=== PATIENT | male | born 1955 | race Caucasian/White ===

== ENCOUNTER 2024-07-20 12:53 | Inpatient (IN) ==
--- NOTE | 2024-07-20 13:19 | XRay Report ---
XR chest 1V not portable CLINICAL HISTORY: Chest pain, nonspecific COMPARISON STUDY: None FINDINGS: Heart size and pulmonary vasculature are normal. No effusion, consolidation, or pneumothora x. IMPRESSION: No acute findings. ACT 112: Negative or not required by law. Electronically signed by: Dannie Cason M.D. 07/20/2024 1:18 PM
[2024-07-20] MEDS: METOPROLOL TARTRATE 1 MG/ML VIAL IV PRN (13:27)
[2024-07-20] MEDS: SODIUM CHLORIDE 0.9% 1,000 ML IV SCH (13:27)
[2024-07-20] MEDS ORDERED: HEPARIN SOD (PORCINE) 1000 UNIT/ML IV ONE (13:38)
[2024-07-20 13:46] LABS: Basophils # (auto) 0.06 K/uL (0.00-0.20); Eosinophils # (auto) 0.17 K/uL (0.00-0.50); Eosinophils % (auto) 2.7 %; Hematocrit (blood only) 56.8 % (42.0-52.0); Immature Granulocytes # (auto) 0.04 K/uL (0.01-0.20); Immature Granulocytes % (auto) 0.6 %; Lymphocytes # (auto) 1.53 K/uL (1.20-3.40); Lymphocytes % (auto) 24.4 %; Mean Corpuscular Hemoglobin 28.8 pg (25.0-34.0); Mean Corpuscular Hgb Conc 31.7 g/dL (32.0-36.0); Mean Platelet Volume 9.6 fL (9.4-12.4); Monocytes # (auto) 0.84 K/uL (0.11-0.59); Monocytes % (auto) 13.4 %; Neutrophils # (auto) 3.63 K/uL (1.40-6.50); Neutrophils % (auto) 57.9 %; Platelet Count 218 K/uL (130-400); RDW Coefficient of Variation 13.1 % (11.5-14.5); RDW Standard Deviation 44.2 fL (36.4-46.3); Red Blood Count 6.24 M/uL (4.70-6.10); White Blood Count 6.27 K/ul (4.8-10.8)
[2024-07-20 13:47] LABS: Albumin Globulin Ratio 1.6 (0.9-2); Albumin Level 4.7 gm/dl (3.4-5.0); BUN Creatinine Ratio 14.3 (10-20); Bilirubin,Total 0.7 mg/dl (0.2-1.0); Calcium 10.1 mg/dl (8.6-10.3); Creatinine Clr Calc Pharmacy 80.4 ml/min; Globulin 2.9 gm/dl (2.5-4.0); Potassium 4.6 mmol/L (3.5-5.1); Total Protein 7.6 gm/dl (6.0-8.3)
[2024-07-20 13:54] LABS: Troponin I High Sensitivity 7.1 pg/ml (0-20)
--- NOTE | 2024-07-20 14:05 | History & Physical Report ---
Date of Service July 20, 2024 Assessment & Plan (1) Atrial flutter: (2) Diabetes mellitus: (3) Hypothyroidism: (4) Osteoarthritis: Plan A flutter with RVR -Admit to PCU -Cardiology consult -Given metoprolol Lopressor IV 5 mg x 3, improved heart rate from 140s to 110, we will continue on metoprolol tartrate 25 mg Q6 scheduled for now. Unknown time of onset. Was found at the [place] upon routine outpatient routine followup. -As needed Lopressor for heart rate greater than 110 -Check TSH, add-on -heparin gtt started, CHADsVASC score of 2, will need to discuss anticoagulation with pt tomorrow and find if DOAC is affordable. DM type II -ISS with Accu-Cheks ACHS -A1c with a.m. labs - Will hold outpatient meds, med rec to be completed yet Osteoarthritis bilateral knees - left is worse than right -Has completed steroid injections, PT and is planning on knee replacement surgery within the next 6 months to 1 year through the [place] -Using meloxicam/Aleve at home, hold NSAID with use of heparin drip as above Hypothyroidism - Check TSH - Continue levothyroxine once meds updated DVT ppx: teds, scds, heparin drip Lines: 2 PIV FEN/GI: Heart healthy/DM diet CODE: Full code Dispo: From home, likely to remain in the hospital x 1-2 days A total of 75 minutes were spent with greater than 50% of that time face to face with the patient, personally reviewing all current laboratories, imaging studies, past medication reconciliation, outpatient chart review, and discussion with specialists to collaborate care for the patient with attending. Please see attending documentation for corrections and/or additions. History of Present Illness Chief Complaint: Tachycardia Primary Care Provider: [facility] This is a 68-year-old male with PMHx of DM type II, HTN, HLD, hypothyroidism, osteoarthritis of both knees. who presents to the hospital from the [place] where he presented for routine appointment as he goes every 6 months. There he was found to have HR in the 130s and was sent over here. He was having HR of 145-150 when he initially presented to [facility] ER. Pt denies any hx of cardiac arrhythmias previously. Pt does take medications for thyroid. He reports that he doesn't want to stay in hospital. Pt denies any symptoms of dizziness, lightheadedness, chest pain, shortness of breath. Pt took all morning meds including a muscle relaxer for knees, meloxicam and aleve for his knees. His Saadia, was talked to on the phone and reports that he has had exertional shortness of breath for some time. They are primarily sedentary any more and states patient reports it on his arthritis of the knees. Denies any alcohol, tobacco, excessive caffeine intake, illicit drug use. 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 He drinks alcohol maybe twice per month. Remote hx of smoking, quit in 1997 and smoked 1 ppd x 10-12 years. Was in the [employer] x 7 years and is retired. Surgical Hx: cholecystectomy over 10 years ago, knee surgery for patellar ligament release 2 years ago Family Hx: Denies any significant family hx, has three other siblings who are alive and well. Past Med/Surg History Problem List (Updated 07/20/24 @ 15:26 by Jose De Jesus Bey MD) Atrial flutter with rapid ventricular response (Acute) S/P cholecystectomy Atrial flutter Diabetes mellitus Hypothyroidism Osteoarthritis Social History (Updated 07/20/24 @ 14:40 by Janel Torres PA-C) Smoking Status: Former smoker Do You Dip or Chew Tobacco: No; Hx Substance Use: No Feels Safe at Home: Yes Review of Systems Review of Systems: Constitutional: No fever, sweats or chills Eyes: No diplopia, no worsening or blurred vision ENT: normal hearing, no trouble swallowing Respiratory: No cough, sputum, dyspnea at rest or on exertion Cardiovascular: No chest pain, tightness or palpitations Abdomen: No pain, nausea, vomiting, diarrhea or constipation Musculoskeletal: No joint pain, calf pain, swelling Neurologic: No weakness, numbness/tingling, or balance problems Psychiatric: No anxiety or depression Skin: No rash or itch Physical Exam Physical Exam: Please refer to attending addendum for complete PE. General: awake, alert, no apparent distress, overweight, white male Head: Normocephalic, atraumatic Cardiac: Aflutter, HR in 110s at bedside ENT: PERRL, EOMI, no pharyngeal exudate, mucous membranes moist Neuro: AAO x 3, no gross motor deficits, speech is clear, no peripheral sensory deficits Results & Data Results & Data Vital Signs (Past 12 Hours) Vital Signs Temp Pulse Resp BP Pulse Ox O2 Del Method 07/20/24 13:45 118 H 122/91 07/20/24 13:34 117 H 124/93 07/20/24 13:20 153 H 07/20/24 12:59 36.7 C 150 H 18 159/110 H 97 Room Air 07/20/24 12:54 Room Air Laboratory Results 07/20/24 13:08 WBC 6.27 RBC 6.24 H Hgb 18.0 Hct 56.8 H MCV 91.0 MCH 28.8 MCHC 31.7 L RDW Std Deviation 44.2 RDW Coeff of Taye 13.1 Plt Count 218 MPV 9.6 Immature Gran % (Auto) 0.6 Neut % (Auto) 57.9 Lymph % (Auto) 24.4 [place] % (Auto) 13.4 Eos % (Auto) 2.7 Baso % (Auto) 1.0 Neut # (Auto) 3.63 Lymph # (Auto) 1.53 [place] # (Auto) 0.84 H Eos # (Auto) 0.17 Baso # (Auto) 0.06 Immature Gran # (Auto) 0.04 PT Cancelled INR Cancelled APTT Cancelled PTT Ratio Cancelled Sodium 140 Potassium 4.6 Chloride 107 Carbon Dioxide 26 Anion Gap 7 BUN 15 Creatinine 1.05 Est Cr Clr Drug Dosing 80.4 eGFR 76.36 BUN/Creatinine Ratio 14.3 Glucose 130 H Calcium 10.1 Magnesium 2.0 Total Bilirubin 0.7 AST 31 ALT 35 Alkaline Phosphatase 92 Troponin I High Sens 7.1 Total Protein 7.6 Albumin 4.7 Globulin 2.9 Albumin/Globulin Ratio 1.6 Diagnostic Findings Chest X-Ray 07/20/24 13:03 XR chest 1V not portable CLINICAL HISTORY: Chest pain, nonspecific COMPARISON STUDY: None FINDINGS: Heart size and pulmonary vasculature are normal. No effusion, consolidation, or pneumothorax. IMPRESSION: No acute findings. ACT 112: Negative or not required by law. Electronically signed by: Dannie Cason M.D. 07/20/2024 1:18 PM ECG Additional Comments: Atrial Flutter, HR in 140s on admission, now improved to 110s. Code Status & VTE Plan Code Status Full Supervising Physician Co-Signing Physician Notes Attending Addendum: Case reviewed with the advanced practitioner. I have personally performed a history and physical examination on the patient. I have reviewed the advanced practitioner's documentation on the date of service referenced in note, and I agree with, and take responsibility for the plan of care. please refer to her notes for full details patient seen and examined, records reviewed by myself as well on exam, patient seen resting in bed, comfortable denies chest pain, dizziness, shortness of breath, palpitations, nausea states he feels fine no other symptoms VS noted and reviewed: General- oriented x 3, not in distress, speaks in sentences with no effort or accessory muscle use Head- atraumatic Eyes- PERRL, EOMI, anicteric ENT- oropharynx clear Neck- supple, no JVD, no adenopathy, no thyromegaly; carotids +2/2, no bruits appreciated Lungs- clear to auscultation bilaterally, no rales/wheezes Heart- normal rate, regular rhythm; no murmur, no gallop, no rub appreciated Abdomen- normal bowel sounds, nondistended, soft, nontender, no masses or hepatosplenomegaly Extremities- no pretibial edema, no calf tenderness; peripheral pulses intact Neuro- alert, oriented x 3; CN 2-12 grossly intact; motor 5/5 bilatera lly;sensation 100% on all extremities; no other gross focal neurologic deficits Skin- warm & dry all labs, imaging noted and reviewed ASSESSMENT AND PLAN> NEW ONSET ATRIAL FLUTTER, WITH RVR BP stable HR improved from 150s to 100s after 3 doses of IV Metoprolol 5mg at the ER start Metoprolol tartrate 25mg po QID CHADSVASC score 2, start heparin drip for now Echo, TSH Cardiology consulted other diagnoses and plan of care as per advanced practitioner's notes Garrett Perez MD
[2024-07-20] MEDS: HEPARIN SOD (PORCINE) 1000 UNIT/ML IV ONE ×2 (14:20→23:09)
[2024-07-20] MEDS: HEPARIN SODIUM/DEXTROSE 25,000 UNITS/500 ML BAG IV SCH (14:21)
[2024-07-20] MEDS: Heparin IV Adult Wt-Based Low-Dose w/ INITIAL Bolus Protocol IV STA (14:22)
--- NOTE | 2024-07-20 15:26 | Emergency Department Note ---
Impression & Plan Atrial flutter with rapid ventricular response ED Provider Note NAME: JORDANA FOWLER AGE: 68 SEX: Male INFORMANT: Patient ED PROVIDER(S): Jose De Jesus Bey MD CHIEF COMPLAINT: Tachycardia PLAN: Disposition: Admitted Outpatient prescription management: none Referral: None MEDICAL DECISION MAKING: Patient presented with tachycardia. ECG was consistent with a flutter with rapid ventricular response. His CBC, chemistry panel, magnesium, potassium, and cardiac troponin were unremarkable. Patient was treated with IV Lopressor 5 mg x 3 and had rate control achieved. He was still in a flutter. Discussed further management in the hospital and patient was in agreement. On reassessment he was feeling well. Patient was ordered IV heparin as he does not know the time of onset. [facility] Patient was evaluated in the ER and admitted for further management. Care/management discussed with: erp manager Level of care consideration(s): After review of the information above and other included data, I feel the patient requires escalation of care to admission Triage Nursing notes: reviewed and agree them. Vital Signs: reviewed and remarkable for tachycardia Additional History obtained from: none Chronic Medical/Social Conditions affecting care: Diabetes Prior/ Outside/ External records reviewed: none Differential Diagnosis: Premature contractions, electrolyte abnormality, cardiac dysrhythmia, thyroid dysfunction, pulmonary embolism, infection, gastrointestinal, as well as other pathologies. Diagnostics, independently interpreted by me: ECG: Twelve-lead ECG reveals a flutter with rapid ventricular response at [address] Cardiac Monitoring: Cardiac monitoring ordered by me: The patient was placed on continuous cardiac monitoring and observed. It revealed atrial flutter at 154 bpm. Medical decision rules: none Imaging studies: Chest x-ray. Findings: A chest x-ray was performed and revealed no pneumothorax, effusion, infiltrate, pulmonary edema, free air under the diaphragm, or wide mediastinum. Impression: No acute disease. HPI: 68 year old Male arrives for evaluation of tachycardia. Patient is unsure of the onset. He was at his [place] regular appointment today and they noted his heart rate was very fast in the 130s. They did an EKG and it showed a flutter with rapid ventricular response. Patient has no history of the same. The patient also notes the following associated symptoms, none. The patient has been given no medication for relieving factors. Current pain is rated as 0/10. Patient denies any cardiac history. Pt denies LOC, headache, fevers, chills, diaphoresis, visual changes, neck pain, chest pain, breathing difficulties, nausea, vomiting, abdominal pain, back pain, melena, hematochezia, urinary symptoms, numbness, weakness, lymphadenopathy, rash, or other complaints.. PAST MEDICAL HISTORY: See Below, diabetes PAST SURGICAL HISTORY: See Below, SOCIAL HISTORY: See Below, retired HOME MEDICATIONS: See Below ALLERGIES: See Below VITALS: See Below PHYSICAL EXAMINATION: GENERAL: Awake, alert, well-appearing, in no distress HENT: Normocephalic, atraumatic. Oropharynx unremarkable. EYES: Normal conjunctiva. Sclera non-icteric. NECK: Inspection normal. Non-tender. Supple. No nuchal rigidity. FROM. No masses. RESPIRATORY: Clear to auscultation. No wheezes. No rales. Normal respiratory effort. CARDIAC: Tachycardic rate. Irregular rhythm. No murmurs. No rubs. Extremities warm and well perfused. Pulses equal. No JVD. GI: Soft, non-distended. No tenderness to palpation. No rebound or guarding. No masses. RECTAL: Deferred. MUSCULOSKELETAL: Atraumatic. Chest examination reveals no tenderness. The back is symmetrical on inspection without obvious abnormality. There is no CVA tenderness to palpation. No joint edema. LOWER EXTREMITIES: Calves are equal size bilaterally and non-tender. No edema. No discoloration. NEURO: Normal sensorium. No sensory or motor deficits noted. SKIN: No rash or jaundice noted. PROCEDURES: none CRITICAL CARE: I have personally spent 30 minutes of critical care time in the direct management of this patient. This includes bedside care, interpretation of diagnostic studies, and testing, discussion with consultants, patient, and other required patient management activities. These minutes are in excess of all separately billable procedures. OBSERVATION NOTE: none Past Med/Surg History Problem List (Updated 07/20/24 @ 15:26 by Jose De Jesus Bey MD) Atrial flutter with rapid ventricular response (Acute) S/P cholecystectomy Atrial flutter Diabetes mellitus Hypothyroidism Osteoarthritis Social History (Updated 07/20/24 @ 14:40 by Janel Torres PA-C) Smoking Status: Former smoker Smoking End Date: 1993; Second Hand Exposure: No; Do You Dip or Chew Tobacco: No; Tobacco Cessation Education Requested by Patient: No Hx Alcohol Use: Yes Alcohol type: wine and hard liquor Hx Substance Use: No Preferred Language: Lao Communication Ability: Effective Network Security Administrator Required: No Beliefs That Will Affect Care: None Current Living Situation: Spouse Other Information That Helps Us Care for You: No Feels Safe at Home: Yes Safety Concerns: Feels Safe At This Time Assistive Devices: Contacts, Denture - Upper and Denture - Lower Home Meds Home Medications Medication Instructions Recorded Confirmed ascorbic acid (vitamin C) 500 mg 1,000 mg PO DAILY 07/20/24 07/20/24 tablet (Vitamin C) aspirin 81 mg tablet,delayed 81 mg PO DAILY 07/20/24 07/20/24 release cyclobenzaprine 10 mg tablet 10 mg PO TID PRN Back Pain 07/20/24 07/20/24 diclofenac sodium 1 % topical gel 2 g topical QID 07/20/24 07/20/24 empagliflozin 25 mg tablet 25 mg PO DAILY 07/20/24 07/20/24 glipizide 2.5 mg tablet 2.5 mg PO DAILY 07/20/24 07/20/24 lisinopril 5 mg tablet 5 mg PO DAILY 07/20/24 07/20/24 meloxicam 15 mg tablet 15 mg PO PRN Other 07/20/24 metformin 1,000 mg tablet 1,000 mg PO BID 07/20/24 07/20/24 multivitamin 2 tab PO DAILY 07/20/24 07/20/24 rosuvastatin 20 mg tablet 10 mg PO DAILY 07/20/24 07/20/24 sildenafil 100 mg tablet 100 mg PO DAILY PRN Erectile 07/20/24 07/20/24 Dysfunction vitamin B12 0.5 mg-folic acid 1 mg 2 tab PO DAILY 07/20/24 07/20/24 tablet Results & Data (ED) Vital Signs Vital Signs - 24 hr 07/20/24 12:54 07/20/24 12:59 07/20/24 13:20 Temperature 36.7 C Temperature Source Skin Pulse Rate 150 H 153 H Respiratory Rate 18 Blood Pressure 159/110 H Blood Pressure Mean 126 Pulse Oximetry 97 Oxygen Delivery Method Room Air Room Air Sepsis Recent Fever Within 48 Hours No Sepsis New/Unexplained Change in Mental Status No Sepsis Action Taken by Nursing No Action Required 07/20/24 13:34 07/20/24 13:45 Temperature Temperature Source Pulse Rate 117 H 118 H Respiratory Rate Blood Pressure 124/93 122/91 Blood Pressure Mean Pulse Oximetry Oxygen Delivery Method Sepsis Recent Fever Within 48 Hours Sepsis New/Unexplained Change in Mental Status Sepsis Action Taken by Nursing Laboratory Data 07/20/24 13:08 07/20/24 13:08 Lab Results 07/20/24 Range/Units 13:08 WBC 6.27 (4.8-10.8) K/ul RBC 6.24 H (4.70-6.10) M/uL Hgb 18.0 (14.0-18.0) g/dl Hct 56.8 H (42.0-52.0) % MCV 91.0 (80.0-100.0) fL MCH 28.8 (25.0-34.0) pg MCHC 31.7 L (32.0-36.0) g/dL RDW Std Deviation 44.2 (36.4-46.3) fL RDW Coeff of Taye 13.1 (11.5-14.5) % Plt Count 218 (130-400) K/uL MPV 9.6 (9.4-12.4) fL Immature Gran % (Auto) 0.6 % Neut % (Auto) 57.9 % Lymph % (Auto) 24.4 % [place] % (Auto) 13.4 % Eos % (Auto) 2.7 % Baso % (Auto) 1.0 % Neut # (Auto) 3.63 (1.40-6.50) K/uL Lymph # (Auto) 1.53 (1.20-3.40) K/uL [place] # (Auto) 0.84 H (0.11-0.59) K/uL Eos # (Auto) 0.17 (0.00-0.50) K/uL Baso # (Auto) 0.06 (0.00-0.20) K/uL Immature Gran # (Auto) 0.04 (0.01-0.20) K/uL PT Cancelled INR Cancelled APTT Cancelled PTT Ratio Cancelled Sodium 140 (136-145) mmol/L Potassium 4.6 (3.5-5.1) mmol/L Chloride 107 (98-107) mmol/L Carbon Dioxide 26 (21-32) mmol/L Anion Gap 7 (3-11) BUN 15 (6-23) mg/dl Creatinine 1.05 (0.6-1.4) mg/dl Est Cr Clr Drug Dosing 80.4 ml/min eGFR 76.36 BUN/Creatinine Ratio 14.3 (10-20) Glucose 130 H (70-99(Fasting)) mg/dl Calcium 10.1 (8.6-10.3) mg/dl Magnesium 2.0 (1.7-2.4) mg/dl Total Bilirubin 0.7 (0.2-1.0) mg/dl AST 31 (13-39) U/L ALT 35 (7-52) U/L Alkaline Phosphatase 92 (34-104) U/L Troponin I High Sens 7.1 (0-20) pg/ml Total Protein 7.6 (6.0-8.3) gm/dl Albumin 4.7 (3.4-5.0) gm/dl Globulin 2.9 (2.5-4.0) gm/dl Albumin/Globulin Ratio 1.6 (0.9-2) TSH 0.820 (0.300-4.500) uIu/ml Administered Medications Sodium Chloride (Nss) 1,000 mls @ 60 mls/hr IV .[id number] [facility] Stop: 07/21/24 03:04 Last Infusion: 07/20/24 17:19 Dose: 60 mls/hr Documented By: Admin: 07/20/24 13:27 Dose: 125 mls/hr Documented By: EFREN Heparin Sodium/Dextrose (Heparin Sodium/Dextrose) 25,000 units in 500 mls @ 20 mls/hr IV .Q24H JOSIAS; Protocol Stop: 08/19/24 13:44 Last Admin: 07/20/24 14:21 Dose: 1,000 units/hr, 20 mls/hr Documented By: EFREN Co-signed By: BRYANNA Insulin Aspart (Insulin Aspart Per Unit Charge) 0 units SC ACHS [facility] Stop: 08/19/24 16:29 Last Admin: 07/20/24 17:39 Dose: 8 units Documented By: SALOME Co-signed By: PREETHI Metoprolol Tartrate (Metoprolol Tartrate 25 Mg Tab) 25 mg PO Q6H [facility] Stop: 08/19/24 15:59 Last Admin: 07/20/24 17:44 Dose: 25 mg Documented By: SALOME Discontinued Medications Heparin Sodium (Porcine) (Heparin Sod (Porcine) 1000 Unit/Ml) 4,000 units IV NOW ONE Stop: 07/20/24 14:16 Last Admin: 07/20/24 14:20 Dose: 4,000 units Documented By: EFREN Co-signed By: BRYANNA Heparin Sodium/Dextrose (Heparin Iv Adult Wt-Based Low-Dose W/ Initial Bolus Protocol) 1 each IV NOW STA; Protocol Stop: 07/20/24 13:23 Last Admin: 07/20/24 14:22 Dose: Not Given Documented By: ARS Metoprolol Tartrate (Metoprolol Tartrate 1 Mg/Ml Vial) 5 mg IV Q5M PRN PRN Reason: Tachycardia Stop: 08/19/24 13:21 Last Admin: 07/20/24 13:45 Dose: 5 mg Documented By: Admin: 07/20/24 13:34 Dose: 5 mg Documented By: Admin: 07/20/24 13:27 Dose: 5 mg Documented By: EFERN Imaging Data Radiologist's Impression: Chest X-Ray 07/20/24 13:03 XR chest 1V not portable CLINICAL HISTORY: Chest pain, nonspecific COMPARISON STUDY: None FINDINGS: Heart size and pulmonary vasculature are normal. No effusion, consolidation, or pneumothorax. IMPRESSION: No acute findings. ACT 112: Negative or not required by law. Electronically signed by: Dannie Cason M.D. 07/20/2024 1:18 PM Discharge Plan Visit Data Chief Complaint: Tachycardia Stated Complaint: ABNORMAL EKG ED Provider: Jose De Jesus Bey Discharge Problem: Atrial flutter with rapid ventricular response Patient Disposition: Admitted As Inpatient Discharge Instructions Interventions: ED Discharge Assessment Last Done: 07/20/24 16:02
[2024-07-20 15:29] LABS: Thyroid Stimulating Hormone 0.82 uIu/ml (0.300-4.500)
[2024-07-20 16:02] LABS: INR 1.1 (0.9-1.1); Partial Thromboplastin Ratio > 4.9; Prothrombin Time 11.4 Seconds (9.0-12.0)
[2024-07-20 16:12] LABS: Partial Thromboplastin Time > 139 Seconds (21-31)
[2024-07-20] MEDS ORDERED: CARBOHYDRATES FOR HYPOGLYCEMIA PO PRN (16:20)
[2024-07-20] MEDS ORDERED: METOPROLOL TARTRATE 1 MG/ML VIAL IV PRN (16:20)
[2024-07-20] MEDS ORDERED: GLUCAGON FOR INJ 1 MG VIAL SQ PRN (16:20)
[2024-07-20] MEDS ORDERED: GLUCOSE 40% GEL 15 GM TUBE PO PRN (16:20)
[2024-07-20] MEDS ORDERED: GLUCOSE 10 TAB/TUBE PO PRN (16:20)
[2024-07-20] MEDS ORDERED: ONDANSETRON INJ 2 MG/ML 2 ML VIAL IV PRN (16:20)
[2024-07-20] MEDS ORDERED: ACETAMINOPHEN 325 MG TAB PO PRN (16:20)
[2024-07-20] MEDS ORDERED: DEXTROSE 50% 50 ML SYRINGE IV PRN (16:20)
[2024-07-20] MEDS: INSULIN ASPART PER UNIT CHARGE SC SCH (17:39)
[2024-07-20] MEDS: METOPROLOL TARTRATE 25 MG TAB PO SCH (17:44)
--- NOTE | 2024-07-20 17:52 | Electrocardiogram Report ---
Test Reason : Blood Pressure : */* mmHG Vent. Rate : 143 BPM Atrial Rate : 337 BPM P-R Int : * ms QRS Dur : 82 ms QT Int : 330 ms P-R-T Axes : * 45 44 degrees QTcB Int : 509 ms Atrial flutter with variable A-V block Nonspecific ST and T wave abnormality Abnormal ECG No previous ECGs available Confirmed by Shaw Alvarez ([id number]) on 07/20/2024 5:51:52 PM Referred By: REFERRED SELF Confirmed By: Shaw Alvarez
[2024-07-20 22:39] LABS: ANTI-Xa, UFH(UnfractionatedHep 0.15 IU/ml (0.3-0.7)
[2024-07-20] MEDS: Patient's ALLERGY Info needs ENTERED STA (22:59)
[2024-07-21 00:40] VITALS: RESP 18
[2024-07-21] MEDS: ALUMINUM/MAGNESIUM/SIMETH (MAALOX MAX) 30 ML UDC PO STA (06:13)
[2024-07-21 06:26] LABS: BUN Creatinine Ratio 18.2 (10-20); Chol HDL Ratio 3.4 (0-5); Creatinine Clr Calc Pharmacy 85.2 ml/min; Magnesium 1.9 mg/dl (1.7-2.4)
[2024-07-21 06:29] LABS: Hematocrit (blood only) 50.7 % (42.0-52.0); Mean Corpuscular Hemoglobin 28.6 pg (25.0-34.0); Mean Corpuscular Hgb Conc 31.6 g/dL (32.0-36.0); Mean Corpuscular Volume 90.7 fL (80.0-100.0); Platelet Count 188 K/uL (130-400); RDW Coefficient of Variation 13.2 % (11.5-14.5); RDW Standard Deviation 44.1 fL (36.4-46.3); Red Blood Count 5.59 M/uL (4.70-6.10); White Blood Count 6.12 K/ul (4.8-10.8)
[2024-07-21 06:32] LABS: ANTI-Xa, UFH(UnfractionatedHep 0.29 IU/ml (0.3-0.7)
[2024-07-21 07:33] LABS: Estimated Average Glucose 169 mg/dl; Hemoglobin A1C 7.5 % (4.5-5.6)
--- NOTE | 2024-07-21 11:14 | Cardiology Consultation ---
<Statement entered by Sonal Null, - 07/21/24 15:05> I have reviewed the advanced practitioner's documentation and agree with the plan of care. I accept the responsibility for the associated risk. The patient was found to have atrial flutter with RVR at routine [place] PCP appointment and he was recommended to go to the ER. The pt's whom I spoke with on the phone today did notice some increased SOB with exertion with the patient over the past few weeks. Pt's echo today based on my independent interpretation reveals the EF is mildly reduced 45% range most likely due to the atrial flutter with RVR as I suspect this has been going on for at least weeks. i discussed with the patient and his today about atrial flutter ablation and stroke prevention. I recommend an atrial flutter ablation after he has been on eliquis uninterrupted for 3 weeks. recommend discharge home today on eliquis 5mg BID and toprol 50mg BID give him a trial coupon card for the eliquis I will see him in the office the week of the ; hopefully the procedure will be on 08/08 I discussed the case and my recommendations with the hospitalist over the phone and he agreed with my plan I spent a total of [45] minutes coordinating, documenting, and providing care for this patient excluding time spent in the performance of separately billed services or time spent by another provider/QHP. Date of Consultation July 21, 2024 Assessment & Plan (1) Atrial flutter with rapid ventricular response: Plan Patient admitted for new onset atrial flutter. Started on IV heparin Rates mildly improved with oral metoprolol Transition to oral metoprolol succinate 50 mg BID Long discussion today with patient regarding treatment options for atrial flutter such as rhythm control and future ablation. Patient wishes outpatient procedure rather than staying for inpatient management due to PTSD with medical facilities and crowds Transition IV heparin to Eliquis 5 mg BID. Working on getting prescription covered through [place]. Will need short term supply. Provide Eliquis coupon. F/U with Dr. Null in several weeks to arrange flutter ablation. Will need future echo to re-evaluate LVEF upon return to [facility] in the future. Given DM and LV dysfunction, would benefit from CAMRYN/ARB but BP borderline low. would recommend sleep med evaluation as outpatient as well. Discharge later today. Dr. Null discussed with hospitalist. Case discussed with Dr. Null I spent a total of 60 minutes on the date of service in preparation, delivery, and documentation of the care provided to this patient, excluding any time spent in the performance of separately billed services. Lynsey Wakefield PA-C Department of Cardiology, [facility] This chart was completed in part utilizing Speech Voice Recognition Software. Grammatical errors, random word insertions, pronoun errors, and incomplete sentences are an occasional consequence of this system due to software limitations, ambient noise, and hardware issues. Any formal questions or concerns about the content, text, or information contained within the body of this dictation should be directly addressed to the provider for clarification. History of Present Illness Reason for Consultation: Atrial flutter RVR Requesting Physician: [facility] Hospitalist Attending Physician: Dr. Null History of Present Illness Patient is a 68 year old male who presented to [facility] where he was found to be tachycardic in the 130's. Diagnosed with Atrial flutter RVR. Started on IV heparin and received several doses of IV metoprolol with improved rates. Transitioned to oral metoprolol tartrate 25 mg q 6 hours. labs were unremarkable on admission No prior cardiac history. Duration of tachyarrhythmia unknown. History includes: DM HTN Dyslipidemia Hypothyroidism At time of consult, patient resting in chair. Feeling well. He is unaware of palpitations or tachypalpitations. No chest pain. Echo reveals global hypokinesis 40-45% Allergies Allergy/AdvReac Type Severity Reaction Status Date / Time No Known Allergies Allergy Unverified 07/20/24 22:59 Home Medications Medication Instructions Recorded Confirmed Type ascorbic acid (vitamin C) 500 mg 1,000 mg PO DAILY 07/20/24 07/20/24 History tablet (Vitamin C) aspirin 81 mg tablet,delayed 81 mg PO DAILY 07/20/24 07/20/24 History release cyclobenzaprine 10 mg tablet 10 mg PO TID PRN Back Pain 07/20/24 07/20/24 History diclofenac sodium 1 % topical gel 2 g topical QID 07/20/24 07/20/24 History empagliflozin 25 mg tablet 25 mg PO DAILY 07/20/24 07/20/24 History glipizide 2.5 mg tablet 2.5 mg PO DAILY 07/20/24 07/20/24 History lisinopril 5 mg tablet 5 mg PO DAILY 07/20/24 07/20/24 History meloxicam 15 mg tablet 15 mg PO PRN Other 07/20/24 History metformin 1,000 mg tablet 1,000 mg PO BID 07/20/24 07/20/24 History multivitamin 2 tab PO DAILY 07/20/24 07/20/24 History rosuvastatin 20 mg tablet 10 mg PO DAILY 07/20/24 07/20/24 History sildenafil 100 mg tablet 100 mg PO DAILY PRN Erectile 07/20/24 07/20/24 History Dysfunction vitamin B12 0.5 mg-folic acid 1 mg 2 tab PO DAILY 07/20/24 07/20/24 History tablet apixaban 5 mg tablet (Eliquis) 5 mg PO BID #60 tabs 07/21/24 Rx metoprolol succinate 50 mg 50 mg PO BID #60 tabs 07/21/24 Rx tablet,extended release 24 hr (Toprol XL) Patient History Social History (Updated 07/20/24 @ 14:40 by Janel Torres PA-C) Smoking Status: Former smoker Smoking End Date: 1993; Second Hand Exposure: No; Do You Dip or Chew Tobacco: No; Tobacco Cessation Education Requested by Patient: No Hx Alcohol Use: Yes Alcohol type: wine and hard liquor Hx Substance Use: No Preferred Language: Spanish Communication Ability: Effective 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 Beliefs That Will Affect Care: None Current Living Situation: Spouse Other Information That Helps Us Care for You: No Feels Safe at Home: Yes Safety Concerns: Feels Safe At This Time Assistive Devices: Contacts, Denture - Upper and Denture - Lower Review of Systems Review of Systems: All systems reviewed & are unremarkable except as noted in HPI & below Physical Exam Constitutional: WD/WN, vitals as above Neck: trachea midline, no thyromegaly Respiratory: normal respiratory effort, lungs clear to auscultation Cardiovascular: Rate/Rhythm: regular rhythm and + tachycardic Heart Sounds: normal S1, normal S2 and + murmur (II/ systolic murmur ) Vessels: no JVD Extremities: no edema Gastrointestinal (Abdomen): normal bowel sounds, soft, nontender, no hepatosplenomegaly Skin: no rashes, warm and dry Neurologic: PERRL, EOMI, accommodation nl, no face palsy, no dysarthria Results & Data Vital Signs (Past 12 Hours) Vital Signs Temp Pulse Resp BP BP Pulse Ox O2 Del Method 07/21/24 08:00 Room Air 07/21/24 07:40 36.5 C 106 H 18 137/91 93 Room Air 07/21/24 04:24 36.3 C L 104 H 18 133/96 94 Room Air 07/21/24 04:22 106 H 07/20/24 23:24 36.3 C L 106 H 18 123/85 94 Room Air Laboratory Results Cardiac Enzymes 07/20/24 Range/Units 13:08 AST 31 (13-39) U/L Troponin I High Sens 7.1 (0-20) pg/ml Coagulation 07/20/24 07/20/24 Range/Units 13:08 14:38 PT Cancelled 11.4 APTT Cancelled > 139 H* Lipids 07/21/24 Range/Units 05:26 Triglycerides 214 H (0-150) mg/dl Cholesterol 137 (0-200) mg/dl HDL Cholesterol 40 mg/dl Cholesterol/HDL Ratio 3.4 (0-5) CBC 07/20/24 07/21/24 Range/Units 13:08 05:26 WBC 6.27 6.12 (4.8-10.8) K/ul RBC 6.24 H 5.59 (4.70-6.10) M/uL Hgb 18.0 16.0 (14.0-18.0) g/dl Hct 56.8 H 50.7 (42.0-52.0) % Plt Count 218 188 (130-400) K/uL Neut # (Auto) 3.63 (1.40-6.50) K/uL Lymph # (Auto) 1.53 (1.20-3.40) K/uL [place] # (Auto) 0.84 H (0.11-0.59) K/uL Eos # (Auto) 0.17 (0.00-0.50) K/uL Baso # (Auto) 0.06 (0.00-0.20) K/uL Comprehensive Metabolic Panel 07/20/24 07/21/24 Range/Units 13:08 05:26 Sodium 140 138 (136-145) mmol/L Potassium 4.6 4.0 (3.5-5.1) mmol/L Chloride 107 106 (98-107) mmol/L Carbon Dioxide 26 25 (21-32) mmol/L BUN 15 18 (6-23) mg/dl Creatinine 1.05 0.99 (0.6-1.4) mg/dl Glucose 130 H 136 H (70-99(Fasting)) mg/dl Calcium 10.1 9.0 (8.6-10.3) mg/dl AST 31 (13-39) U/L ALT 35 (7-52) U/L Alkaline Phosphatase 92 (34-104) U/L Total Protein 7.6 (6.0-8.3) gm/dl Albumin 4.7 (3.4-5.0) gm/dl Intake and Output 07/20/24 07/21/24 07/21/24 22:59 06:59 14:59 Intake Total 1702.000 / 2397.684 695.684 / 2397.684 108.333 / 108.333 Output Total Balance 1701.000 / 2396.684 695.684 / 2396.684 108.333 / 108.333 Intake: IV 652.000 / 1347.684 695.684 / 1347.684 108.333 / 108.333 Heparin Sodium/Dextrose 25,000 168.667 / 347.684 179.017 / 347.684 108.333 / 108.333 units In 500 ml @ 1,150 UNITS/ HR 23 mls/hr IV .[id number] JOSIAS Rx #:[id number] Sodium Chloride 0.9% 1,000 ml @ 483.333 / 1000.000 516.667 / 1000.000 60 mls/hr IV .[id number] JOSIAS Rx#: [id number] Oral 1050 / 1050 Output: # Bowel Movements Other: Other Intake Source NPO # Unmeasured Voids 3 3 Weight 107.4 kg 108.2 kg Weight Measurement Method Standing Scale Standing Scale Diagnostic Findings Telemetry reviewed: Atrial flutter with RVR rates ranging 100-130 EKG reviewed from admission 07/20/24 at 13:04: Atrial flutter with variable AV block non specific ST/T wave abnormality Repeat EKG this morning dated 07/21/24 at 4:45 AM Atrial flutter with 3:[address] Non specific [address]/T wave abnormality Echo report reviewed dated 07/21/24: LVEF 40-45% global hypokinesis AV is calcified with possible fused bicupsid leaflet Mild to moderate MR No prior study Chest X-Ray 07/20/24 13:03 XR chest 1V not portable CLINICAL HISTORY: Chest pain, nonspecific COMPARISON STUDY: None FINDINGS: Heart size and pulmonary vasculature are normal. No effusion, consolidation, or pneumothorax. IMPRESSION: No acute findings. ACT 112: Negative or not required by law. Medications Administered Current Inpatient Medications Acetaminophen (Acetaminophen 325 Mg Tab) 650 mg PO Q4H PRN PRN Reason: Moderate Pain (Scale 4, 5, 6) Stop: 08/19/24 16:19 Dextrose (Dextrose 50% 50 Ml Syringe) 25 - 50 ml IV UD PRN; Protocol PRN Reason: Hypoglycemia Protocol Stop: 08/19/24 16:19 Glucagon (Glucagon For Inj 1 Mg Vial) 1 mg SQ UD PRN; Protocol PRN Reason: Hypoglycemia Protocol Stop: 08/19/24 16:19 Glucose (Glucose 40% Gel 15 Gm Tube) 15 - 30 gm PO UD PRN; Protocol PRN Reason: Hypoglycemia Protocol Stop: 08/19/24 16:19 Glucose (Glucose 10 Tab/Tube) 4 - 8 tab PO UD PRN; Protocol PRN Reason: Hypoglycemia Protocol Stop: 08/19/24 16:19 Heparin Sodium/Dextrose (Heparin Sodium/Dextrose) 25,000 units in 500 mls @ 25 mls/hr IV .Q20H JOSIAS; Protocol Stop: 08/19/24 13:44 Last Admin: 07/21/24 10:54 Dose: 1,250 units/hr, 25 mls/hr Insulin Aspart (Insulin Aspart Per Unit Charge) 0 units SC ACHS JOSIAS Stop: 08/19/24 16:29 Last Admin: 07/21/24 08:13 Dose: Not Given Metoprolol Tartrate (Metoprolol Tartrate 25 Mg Tab) 25 mg PO Q6H [facility] Stop: 08/19/24 15:59 Last Admin: 07/21/24 09:12 Dose: 25 mg Metoprolol Tartrate (Metoprolol Tartrate 1 Mg/Ml Vial) 5 mg IV Q4 PRN PRN Reason: tachycardia Stop: 08/19/24 16:19 Miscellaneous (Carbohydrates For Hypoglycemia ) 15 - 30 gm PO UD PRN PRN Reason: Hypoglycemia Protocol Stop: 08/19/24 16:19 Ondansetron HCl (Ondansetron Inj 2 Mg/Ml 2 Ml Vial) 4 mg IV Q4H PRN PRN Reason: Nausea And Vomiting Stop: 08/19/24 16:19
[2024-07-21 11:40] LABS: ANTI-Xa, UFH(UnfractionatedHep 0.28 IU/ml (0.3-0.7)
[2024-07-21] MEDS: INSULIN ASPART PER UNIT CHARGE SC SCH ×2 (11:51→13:00)
--- NOTE | 2024-07-21 12:47 | Hospitalist Progress Note ---
Date of Service July 21, 2024 Assessment & Plan (1) Atrial flutter with rapid ventricular response: (2) Heart failure with mildly reduced ejection fraction (HFmrEF, 41-49%): (3) Diabetes mellitus: (4) Hypothyroidism: Plan Patient presented from PCPs office with new diagnosis of atrial flutter with rapid ventricular response. Patient still with some tachycardia especially with activity Continue beta-blockade Continue anticoagulation with IV heparin, anticipate transitioning to Eliquis Cardiology consultation pending, patient may need cardioversion Continue to monitor glucose, cover with short acting insulin Continue current synthyroid dosing Nurse reports the patient complained of a few loose stools here this morning.Will check stool bio fire and C. difficile. Low suspicion for infectious process, however would rule out infectious process prior to utilizing Imodium Admission and Anticipated Discharge Date Admission Date: July 20, 2024 Subjective Patient denies any chest pain or shortness of breath. Did not feel his heart rate going fast. Is a bit hungry but understands the need for n.p.o. Physical Exam Physical Exam: Constitutional: Alert, nontoxic HEENT: Mucous membranes moist. Lungs: Clear to auscultation, decreased, no wheezes rales or rhonchi CV: S1-S2, regular, tachycardic, systolic murmur Abdomen: Soft, nontender, nondistended Extremities: Trace edema Neuro: No focal deficits Psych: Cooperative, normal mood Results & Data Results & Data Vital Signs (Past 12 Hours) Vital Signs Temp Pulse Pulse Resp BP BP Pulse Ox 07/21/24 12:15 116 H 07/21/24 11:44 36.4 C L 104 H 18 112/81 95 07/21/24 08:00 07/21/24 07:40 36.5 C 106 H 18 137/91 93 07/21/24 04:24 36.3 C L 104 H 18 133/96 94 07/21/24 04:22 106 H O2 Del Method 07/21/24 12:15 07/21/24 11:44 Room Air 07/21/24 08:00 Room Air 07/21/24 07:40 Room Air 07/21/24 04:24 Room Air 07/21/24 04:22 Diagnostic Findings Reviewed imaging, laboratory and diagnostic studies. Pertinent findings as bel ow. CBC stable BMP showed normal electrolytes, creatinine 0.99 Glucose was reviewed Hemoglobin A1c 7.5% Triglycerides 214 Cholesterol 137 LDL 54 HDL 40 TSH 0.8 Echocardiogram showed ejection fraction 40 to 45%, with some mild global hypokinesis which may be related to the arrhythmia. Calcified aortic valve possibly fused bicuspid leaflet. Personally reviewed EKG, continued atrial flutter with RVR
--- NOTE | 2024-07-21 15:08 | Discharge Summary ---
Discharge Summary Date of Service July 21, 2024 Principal Dx & Hospital Course #1 = Principal Diagnosis (1) Atrial flutter with rapid ventricular response: (2) Heart failure with mildly reduced ejection fraction (HFmrEF, 41-49%): (3) Diabetes mellitus: (4) Hypothyroidism: Plan Patient presented to the emergency room after he was at his PCPs office and was noted to be in atrial flutter with RVR. Patient was cared for in the hospital. He remained in atrial flutter throughout his hospitalization. He was started on IV heparin and metoprolol. Echocardiogram was performed which showed a mildly decreased ejection fraction possibly due to the arrhythmia. Cardiology consultation was obtained, they reviewed echocardiogram with the patient and his arrhythmia. Patient was very interested in being discharged today. With cardiology they agreed to a plan where he will be started on metoprolol succinate and converted to Eliquis for anticoagulation. He can be discharged home and follow-up within the next 2 to 4 weeks with cardiology to have atrial flutter ablation performed. Communication with cardiology and confirmed plan for discharge with Dr. Null. At the time of discharge patient was completely asymptomatic. In fact he had no symptoms of his atrial flutter at all I did not really even know he was in this arrhythmia when he presented to his PCPs office. His heart rate was right around 100-1 10 at rest. His blood pressure was tolerating the beta-zak. He understands the need for immediate follow-up. Understand the need for following up with [facility] as well as his the talent coordinator. Understands need to get the medications prescribed at a local pharmacy here today or first thing tomorrow. Notes For Next Care Provider Patient should follow-up with cardiology to discuss and have atrial flutter ablation Continue ongoing care for other medical issues Will continue to need anticoagulation even after ablation until discontinued by cardiology Medication Changes From Visit Metoprolol succinate twice daily Eliquis twice daily Admission HPI Per Admitting Provider This is a 68-year-old male with PMHx of DM type II, HTN, HLD, hypothyroidism, osteoarthritis of both knees. who presents to the hospital from the [place] where he presented for routine appointment as he goes every 6 months. There he was found to have HR in the 130s and was sent over here. He was having HR of 145-150 when he initially presented to [facility] ER. Pt denies any hx of cardiac arrhythmias previously. Pt does take medications for thyroid. He reports that he doesn't want to stay in hospital. Pt denies any symptoms of dizziness, lightheadedness, chest pain, shortness of breath. Pt took all morning meds including a muscle relaxer for knees, meloxicam and aleve for his knees. His Saadia, was talked to on the phone and reports that he has had exertional shortness of breath for some time. They are primarily sedentary any more and states patient reports it on his arthritis of the knees. Denies any alcohol, tobacco, excessive caffeine intake, illicit drug use. 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 He drinks alcohol maybe twice per month. Remote hx of smoking, quit in 1997 and smoked 1 ppd x 10-12 years. Was in the [employer] x 7 years and is retired. Surgical Hx: cholecystectomy over 10 years ago, knee surgery for patellar ligament release 2 years ago Family Hx: Denies any significant family hx, has three other siblings who are alive and well. Admission Exam Per Admitting Provider See H&P Discharge Exam Constitutional: Alert, nontoxic HEENT: Mucous membranes moist. Lungs: Clear to auscultation, decreased, no wheezes rales or rhonchi CV: S1-S2, regular, tachycardic, systolic murmur Abdomen: Soft, nontender, nondistended Extremities: Trace edema Neuro: No focal deficits Psych: Cooperative, normal mood Updated Medication List Medication Instructions Recorded Confirmed Type ascorbic acid (vitamin C) 500 mg 1,000 mg PO DAILY 07/20/24 07/20/24 History tablet (Vitamin C) aspirin 81 mg tablet,delayed 81 mg PO DAILY 07/20/24 07/20/24 History release cyclobenzaprine 10 mg tablet 10 mg PO TID PRN Back Pain 07/20/24 07/20/24 History diclofenac sodium 1 % topical gel 2 g topical QID 07/20/24 07/20/24 History empagliflozin 25 mg tablet 25 mg PO DAILY 07/20/24 07/20/24 History glipizide 2.5 mg tablet 2.5 mg PO DAILY 07/20/24 07/20/24 History lisinopril 5 mg tablet 5 mg PO DAILY 07/20/24 07/20/24 History meloxicam 15 mg tablet 15 mg PO PRN Other 07/20/24 History metformin 1,000 mg tablet 1,000 mg PO BID 07/20/24 07/20/24 History multivitamin 2 tab PO DAILY 07/20/24 07/20/24 History rosuvastatin 20 mg tablet 10 mg PO DAILY 07/20/24 07/20/24 History sildenafil 100 mg tablet 100 mg PO DAILY PRN Erectile 07/20/24 07/20/24 History Dysfunction vitamin B12 0.5 mg-folic acid 1 mg 2 tab PO DAILY 07/20/24 07/20/24 History tablet apixaban 5 mg tablet (Eliquis) 5 mg PO BID #60 tabs 07/21/24 Rx metoprolol succinate 50 mg 50 mg PO BID #60 tabs 07/21/24 Rx tablet,extended release 24 hr (Toprol XL) Hospital Stay Data Consultations 07/20/24 14:05 ED Decision to Admit Stat 07/20/24 16:20 Consult Cardiology Routine Diagnostic Imagining Performed Reviewed imaging, laboratory and diagnostic studies. Pertinent findings as below. CBC stable BMP showed normal electrolytes, creatinine 0.99 Glucose was reviewed Hemoglobin A1c 7.5% Triglycerides 214 Cholesterol 137 LDL 54 HDL 40 TSH 0.8 Echocardiogram showed ejection fraction 40 to 45%, with some mild global hypokinesis which may be related to the arrhythmia. Calcified aortic valve possibly fused bicuspid leaflet. Personally reviewed EKG, continued atrial flutter with RVR Pending Results Patient Have Any Pending Studies at Discharge: No Discharge Instructions Given to Patient (Per Discharging Provider) Doctors as always office will be contacting you to coordinate a time and date for your atrial flutter ablation You will need to follow-up with your [facility] doctor within the next 30 days to get updated prescriptions of the Eliquis and metoprolol succinate Seek immediate medical attention if you have chest pain, shortness of breath, significant leg swelling or severe palpitations Total Time Total Time Spent Total Time Spent (In Minutes): 43
[2024-07-21] MEDS: APIXABAN 5 MG TABLET PO STA (15:10)
[2024-07-21] MEDS: METOPROLOL SUCC 50MG EXT REL TAB PO SCH (15:10)
[2024-07-21 15:11] VITALS: PULSE 108; TEMP 97.3; O2SAT 94
[2024-07-21 15:47] VITALS: BP 112/81
[2024-07-21] MEDS ORDERED: METOPROLOL SUCC 50MG EXT REL TAB PO SCH (21:00)
[2024-07-22] MEDS ORDERED: APIXABAN 5 MG TABLET PO SCH
--- NOTE | 2024-07-23 05:59 | Electrocardiogram Report ---
Test Reason : Blood Pressure : */* mmHG Vent. Rate : 105 BPM Atrial Rate : 315 BPM P-R Int : * ms QRS Dur : 90 ms QT Int : 344 ms P-R-T Axes : 76 53 55 degrees QTcB Int : 454 ms Atrial flutter with 3:1 A-V conduction Nonspecific ST and T wave abnormality Abnormal ECG When compared with ECG of 20-Jul-2024 13:04, No significant change was found Confirmed by Enmanuel Hurtado ([id number]) on 07/23/2024 5:58:53 AM Referred By: REFERRED SELF Confirmed By: Enmanuel Hurtado
== END 2024-07-21 16:06 | disposition home or self-care (01) | DRG 309 ==
LOC: ED 12:53 → SUATTDRO 14:08 → 4W 14:08